=== PATIENT | male | born 1965 | race Caucasian/White ===

== ENCOUNTER 2022-02-28 15:49 | Inpatient (IN) | payer OTHER ==
[~2022-02-28] VITALS: Ht 177.8 cm; Wt 103.3 kg
[2022-02-28] MEDS ORDERED: SODIUM CHLORIDE 0.9% 1,000 ML IV ONE ×3 (16:45→20:15)
[2022-02-28 17:08] LABS: Basophils # (auto) 0.1 10 ^3/uL (0-0.2); Basophils % (auto) 0.9 % (0.0-2.0); Eosinophils # (auto) 0.1 10 ^3/uL (0-0.8); Eosinophils % (auto) 1.3 % (0.0-7.0); Hematocrit 45.1 % (41.0-53.0); Hemoglobin 15.8 g/dL (13.5-17.5); Lymphocytes # (auto) 1.3 10 ^3/uL (0.4-5.4); Lymphocytes % (auto) 18.9 % (10.0-50.0); Mean Corpuscular Hgb Conc. 35.1 g/dL (32.0-36.0); Mean Corpuscular Volume 94.2 fL (80.0-100.0); Monocytes # (auto) 0.6 10 ^3/uL (0-1.3); Monocytes % (auto) 8.6 % (0.0-12.0); Neutrophils # (auto) 4.9 10 ^3/uL (1.6-8.6); Neutrophils % (auto) 70.3 % (37.0-80.0); Red Blood Cells 4.79 10^6/uL (4.5-5.90); Red Cell Distribution Width 13.3 % (11.8-14.3)
[2022-02-28] MEDS ORDERED: ESMOLOL HCL-NS 10MG/ML 250 ML IV SCH (17:15)
[2022-02-28 17:50] LABS: Albumin 3.8 g/dL (3.4-5.0); Calcium 9.1 mg/dL (8.5-10.1); Potassium 4.3 mmol/L (3.5-5.1)
[2022-02-28 17:52] LABS: Bilirubin, Total 0.4 mg/dL (0.2-1.0); Total Protein 6.9 g/dL (6.4-8.2)
[2022-02-28] MEDS ORDERED: dilTIAZem 125mg/125ml BAG KIT 125 ML IV ONE ×2 (19:15→22:15)
[2022-02-28] MEDS ORDERED: ADENOSINE 6 MG/2 ML INJ IV ONE ×3 (21:00→21:45)
[2022-02-28] MEDS ORDERED: MORPHINE SULFATE INJ 2 MG/ml SYRG IV PRN (23:45)
[2022-02-28] MEDS ORDERED: NITROGLYCERIN 0.4 MG SL TAB SL PRN (23:45)
[2022-02-28] MEDS ORDERED: TEMAZEPAM 15 MG CAP PO PRN (23:45)
[2022-02-28] MEDS ORDERED: ONDANSETRON HCL 4 MG/2 ML VIAL IV PRN (23:45)
[2022-02-28] MEDS ORDERED: DEXTROSE (50%) 50ML SYRG IV PRN (23:45)
[2022-02-28] MEDS ORDERED: AMIODARONE HCL 150 MG in D5W 5% 100 ML IV ONE (23:45)
[2022-02-28] MEDS ORDERED: ACETAMINOPHEN 325 MG TAB PO PRN (23:45)
[2022-03-01] MEDS ORDERED: AMIODARONE 450mg/250ml AE 250 ML IV SCH
[2022-03-01] MEDS ORDERED: AMIODARONE 450mg/250ml AE 250 ML IV ONE (00:13)
[2022-03-01] MEDS ORDERED: AMIODARONE HCL (50 MG/ ML) 3 ML VIAL IV ONE (00:36)
[2022-03-01] MEDS ORDERED: LABETALOL HCL 5 MG/ML 4ML SYRINGE IV ONE (04:30)
[2022-03-01 06:33] LABS: Basophils # (auto) 0.3 10 ^3/uL (0-0.2); Basophils % (auto) 3.5 % (0.0-2.0); Eosinophils # (auto) 0.1 10 ^3/uL (0-0.8); Eosinophils % (auto) 0.9 % (0.0-7.0); Hematocrit 44.3 % (41.0-53.0); Hemoglobin 15.6 g/dL (13.5-17.5); Lymphocytes # (auto) 0.8 10 ^3/uL (0.4-5.4); Mean Corpuscular Hemoglobin 33.5 pg (28.0-32.0); Mean Corpuscular Hgb Conc. 35.1 g/dL (32.0-36.0); Mean Corpuscular Volume 95.2 fL (80.0-100.0); Monocytes # (auto) 0.5 10 ^3/uL (0-1.3); Monocytes % (auto) 6.5 % (0.0-12.0); Neutrophils # (auto) 6.5 10 ^3/uL (1.6-8.6); Neutrophils % (auto) 79.1 % (37.0-80.0); Red Blood Cells 4.65 10^6/uL (4.5-5.90); Red Cell Distribution Width 13.1 % (11.8-14.3); White Blood Cell 8.2 10^3/uL (4.4-10.8)
[2022-03-01 06:47] LABS: Albumin 3.5 g/dL (3.4-5.0); Calcium 8.5 mg/dL (8.5-10.1); Potassium 3.9 mmol/L (3.5-5.1)
[2022-03-01 06:50] LABS: BUN/Creatinine Ratio 15.2; Bilirubin, Total 0.6 mg/dL (0.2-1.0); Total Protein 6.7 g/dL (6.4-8.2)
[2022-03-01] MEDS: AMIODARONE 450mg/250ml AE 250 ML IV SCH ×2 (08:01→21:48)
[2022-03-01] MEDS: ACCU-CHEK COMFORT CURVE STRIP VI SCH ×4 (08:10→21:47)
[2022-03-01] MEDS: InsuLIN REG 1unit/0.01ml Soln (100units/ml) SC SCH ×4 (08:11→21:43)
[2022-03-01] MEDS ORDERED: ENOXAPARIN SOD 40 MG/0.4 ML SYRINGE SC SCH (10:00)
[2022-03-01] MEDS ORDERED: ATENOLOL 50 MG TAB PO SCH (10:00)
[2022-03-01] MEDS ORDERED: DIGOXIN (250MCG/ML) 2 ML AMPULE IV ONE ×2 (11:30→16:45)
[2022-03-01] MEDS ORDERED: dilTIAZem 25 MG/5 ML VIAL IV ONE (11:30)
[2022-03-01] MEDS ORDERED: SIMV-13 PO (13:22)
[2022-03-01] MEDS ORDERED: ATEN50TA PO (13:22)
[2022-03-01] MEDS ORDERED: METF-762 PO (13:22)
[2022-03-01] MEDS ORDERED: FENO160T8 PO (13:22)
[2022-03-01] MEDS ORDERED: APRE30TA PO (13:22)
[2022-03-01 13:30] VITALS: BP 130/83
[2022-03-01 16:30] VITALS: BP 136/100
[2022-03-01] MEDS ORDERED: dilTIAZem HCL 180MG ER CAP PO ONE (16:45)
[2022-03-01] MEDS: ATORVASTATIN 20 MG TAB PO SCH (21:15)
[2022-03-01] MEDS: ENOXAPARIN SOD 120 MG/0.8 ML SYRINGE SC SCH (21:47)
[2022-03-01 22:00] VITALS: BP 138/97
[2022-03-02] VITALS (10 sets, daily range): BP systolic 109–141; BP diastolic 70–95
[2022-03-02 04:42] LABS: Urine Bacteria NONE SEEN /hpf (None Seen); Urine Blood Negative /uL (Negative); Urine Specific Gravity 1.014 (1.001-1.035); Urine WBC <1 /hpf (0 - 3)
[2022-03-02 04:47] LABS: Amphetamine Screen, Urine NEGATIVE (NEGATIVE); Barbiturate Scree,Urine NEGATIVE (NEGATIVE); Benzodiazephine Screen, Urine NEGATIVE (NEGATIVE); Cannabinoid Screen, Urine NEGATIVE (NEGATIVE); Cocaine Screen, Urine NEGATIVE (NEGATIVE)
[2022-03-02 04:51] LABS: Opiate Scree,Urine NEGATIVE (NEGATIVE); Phencyclidine Screen, Urine NEGATIVE (NEGATIVE)
[2022-03-02 04:59] LABS: Alcohol, Urine < 3.0 mg/dL (0-10)
[2022-03-02] MEDS: ACCU-CHEK COMFORT CURVE STRIP VI SCH ×4 (06:13→22:00)
[2022-03-02] MEDS: InsuLIN REG 1unit/0.01ml Soln (100units/ml) SC SCH ×4 (06:14→21:22)
[2022-03-02 06:25] LABS: Basophils # (auto) 0.1 10 ^3/uL (0-0.2); Basophils % (auto) 1.2 % (0.0-2.0); Eosinophils # (auto) 0.1 10 ^3/uL (0-0.8); Eosinophils % (auto) 1.7 % (0.0-7.0); Hematocrit 47.5 % (41.0-53.0); Lymphocytes # (auto) 1.3 10 ^3/uL (0.4-5.4); Lymphocytes % (auto) 17.4 % (10.0-50.0); Mean Corpuscular Hemoglobin 33.9 pg (28.0-32.0); Mean Corpuscular Hgb Conc. 35.8 g/dL (32.0-36.0); Mean Corpuscular Volume 94.8 fL (80.0-100.0); Monocytes # (auto) 0.7 10 ^3/uL (0-1.3); Monocytes % (auto) 9.2 % (0.0-12.0); Neutrophils # (auto) 5.1 10 ^3/uL (1.6-8.6); Neutrophils % (auto) 70.5 % (37.0-80.0); Nucleated Red Blood Cells % 0.5 %; Red Blood Cells 5.01 10^6/uL (4.5-5.90); Red Cell Distribution Width 13.4 % (11.8-14.3); White Blood Cell 7.3 10^3/uL (4.4-10.8)
[2022-03-02 06:38] LABS: INR 1.04 (0.9-1.15); Partial Thromboplastin Time 28.8 sec (23.6-33.0)
[2022-03-02 06:46] LABS: Calcium 8.9 mg/dL (8.5-10.1); Magnesium 2.5 mg/dL (1.6-2.6); Potassium 4.5 mmol/L (3.5-5.1)
[2022-03-02 06:49] LABS: BUN/Creatinine Ratio 14.6
[2022-03-02] MEDS ORDERED: fentaNYL CITRATE 100 MCG/2 ML VL IV ONE (09:15)
[2022-03-02] MEDS ORDERED: MIDAZOLAM HCL 5 MG/ML-1ML VIAL IM ONE (09:15)
[2022-03-02] MEDS ORDERED: LIDOCAINE VISCOUS 2% 15ML UD PO ONE (09:15)
[2022-03-02] MEDS ORDERED: DIGOXIN 0.125 MG TAB PO SCH (10:00)
[2022-03-02] MEDS: dilTIAZem HCL 180MG ER CAP PO SCH (10:00)
[2022-03-02] MEDS: ENOXAPARIN SOD 120 MG/0.8 ML SYRINGE SC SCH (10:00)
[2022-03-02] MEDS: AMIODARONE 450mg/250ml AE 250 ML IV SCH (12:30)
[2022-03-02] MEDS ORDERED: MIDAZOLAM HCL 2MG/2ML 2ml VIAL (1mg/ml) ONE (13:21)
[2022-03-02] MEDS ORDERED: ENOXAPARIN SOD 100 MG/1 ML SYRINGE SC ONE (13:53)
[2022-03-02] MEDS ORDERED: fentaNYL CITRATE 100 MCG/2 ML VL ONE (14:05)
[2022-03-02] MEDS ORDERED: AMIODARONE HCL 200 MG TAB PO ONE (14:15)
[2022-03-02] MEDS: ATORVASTATIN 20 MG TAB PO SCH (21:23)
[2022-03-02] MEDS: APIXABAN 5 MG TAB PO SCH (21:23)
[2022-03-02] MEDS: AMIODARONE HCL 200 MG TAB PO SCH (21:23)
[2022-03-03 04:45] VITALS: BP 134/90
[2022-03-03] MEDS: InsuLIN REG 1unit/0.01ml Soln (100units/ml) SC SCH ×2 (06:13→12:26)
[2022-03-03] MEDS: ACCU-CHEK COMFORT CURVE STRIP VI SCH ×2 (06:20→12:22)
[2022-03-03 07:30] VITALS: BP 136/100
[2022-03-03 09:00] VITALS: BP 148/97
[2022-03-03] MEDS: APIXABAN 5 MG TAB PO SCH (09:06)
[2022-03-03] MEDS: dilTIAZem HCL 180MG ER CAP PO SCH (09:06)
[2022-03-03] MEDS: AMIODARONE HCL 200 MG TAB PO SCH (09:06)
[2022-03-03] MEDS ORDERED: AMIO200T33 PO (10:23)
[2022-03-03] MEDS ORDERED: APIX5TAB PO (10:25)
[2022-03-03] MEDS ORDERED: DILT360T2 PO (10:25)
[2022-03-03 13:00] VITALS: BP 134/88
[2022-03-03 13:45] VITALS: BP 134/90
== END 2022-03-03 14:50 | disposition home or self-care (01) | DRG 310 ==
LOC: EDBD 15:49 → ER 15:49 → TELE 23:45 → TELE-WESTW 03-01 12:34
PROVIDERS: ADMIT Nurse Practitioner; ATTEND Internal Medicine
PROC: 5A2204Z Restoration of Cardiac Rhythm, Single (ICD-10-PCS; principal; 2022-03-02)
PROC: B246ZZ4 Ultrasonography of Right and Left Heart, Transesophageal (ICD-10-PCS; 2022-03-02)
DX: I47.1 Supraventricular tachycardia (principal); I48.92 Unspecified atrial flutter; E11.9 Type 2 diabetes mellitus without complications; E66.9 Obesity, unspecified; E78.5 Hyperlipidemia, unspecified; I25.10 Atherosclerotic heart disease of native coronary artery without angina pectoris; I11.9 Hypertensive heart disease without heart failure; M19.90 Unspecified osteoarthritis, unspecified site; Z68.32 Body mass index [BMI] 32.0-32.9, adult; Z88.0 Allergy status to penicillin; Z82.49 Family history of ischemic heart disease and other diseases of the circulatory system; Z20.822 Contact with and (suspected) exposure to COVID-19
CPT/HCPCS: 36415; 71045; 80048; 80053; 80061; 80162; 80307; 81001; 82962; 83036; 83735; 84443; 84484; 85025; 85379; 85610; 85730; 92960; 93005; 93306; 93312; 96365; 99152; 99291; G0378; J0153; J1815; J2250; J2405; J7060